=== PATIENT | female | born 1955 | race Two or more races ===

== ENCOUNTER 2016-07-19 05:23 | Day surgery (SDC) | payer OTHER ==
[2016-07-19] MEDS ORDERED: SECONDARY IV SET 1 EA INFUS.SET MC ONE (05:58)
[2016-07-19] MEDS ORDERED: CEFAZOLIN SODIUM/DEXTROSE,ISO 50 ML IV ONE (05:58)
[2016-07-19] MEDS ORDERED: IV SET PRIMARY 1 EA INFUS.SET MC ONE (05:58)
[2016-07-19] MEDS ORDERED: NEEDLELESS EST SET LARGE BORE 1 EA INFUS.SET MC ONE (05:58)
[2016-07-19] MEDS ORDERED: IV LR 1000 ML 1,000 ML ONE (05:58)
[2016-07-19] MEDS ORDERED: LIDOCAINE HCL/PF 1% 30 ML SDV ONE (06:55)
[2016-07-19] MEDS ORDERED: EPINEPHRINE (1:1000) MDV 30 MG/30ML VIAL ONE (08:11)
[2016-07-19] MEDS ORDERED: MORPHINE SULFATE/PF 10 MG/10ML (1MG/ML) AMPUL ONE (08:27)
== END 2016-07-19 09:40 | disposition home or self-care (01) ==
LOC: DS 05:23
PROVIDERS: ATTEND Student in an Organized Health Care Education/Training Program
DX: S83.242A Other tear of medial meniscus, current injury, left knee, initial encounter (principal); M65.88 Other synovitis and tenosynovitis, other site; M67.52 Plica syndrome, left knee; M94.262 Chondromalacia, left knee; X58.XXXA Exposure to other specified factors, initial encounter; Y93.89 Activity, other specified; Y92.89 Other specified places as the place of occurrence of the external cause; Y99.8 Other external cause status; I11.9 Hypertensive heart disease without heart failure; I25.2 Old myocardial infarction; I25.10 Atherosclerotic heart disease of native coronary artery without angina pectoris; M17.9 Osteoarthritis of knee, unspecified; I70.0 Atherosclerosis of aorta; F41.9 Anxiety disorder, unspecified; Z90.710 Acquired absence of both cervix and uterus; Z80.9 Family history of malignant neoplasm, unspecified
CPT/HCPCS: 29881; A4217; A6253 ×2; J0171; J0690; J2274; J3490; J7120; 88304-TC; 88305-TC; 88311-TC

== ENCOUNTER 2017-03-01 05:20 | Inpatient (IN) | payer OTHER ==
[~2017-03-01] VITALS: Ht 152.4 cm; Wt 81.6 kg
[2017-03-01] VITALS (13 sets, daily range): BP systolic 116–137; BP diastolic 64–79
[2017-03-01] MEDS ORDERED: MIDAZOLAM HCL 2 MG/2ML VIAL ONE (06:48)
[2017-03-01] MEDS ORDERED: MORPHINE SULFATE/PF 10 MG/10ML (1MG/ML) AMPUL ONE (06:48)
[2017-03-01] MEDS ORDERED: KETOROLAC TROMETHAMINE INJ 30 MG/ML VIAL ONE (06:50)
[2017-03-01] MEDS ORDERED: BUPIVACAINE MPF 0.5% W/EPI INJ 30 ML VIAL ONE (06:51)
[2017-03-01] MEDS ORDERED: BACITRACIN 50000 UNITS/VIAL ONE (06:51)
[2017-03-01] MEDS ORDERED: TRANEXAMIC ACID 3,000 MG in SODIUM CHLORIDE IRRIG SOLUTION 70 ML IR ONE (07:00)
[2017-03-01] MEDS ORDERED: HYDROMORPHONE 1 MG/1 ML DISP.SYRIN IV PRN (09:00)
[2017-03-01] MEDS ORDERED: TYLENOL 650 MG TABLET PO PRN (09:00)
[2017-03-01] MEDS ORDERED: DULCOLAX 10 MG/SUPP.RECT RC PRN (09:00)
[2017-03-01] MEDS ORDERED: COLACE 100 MG CAPSULE PO PRN (09:00)
[2017-03-01] MEDS ORDERED: HYDROCODONE/APAP 5/325MG 1 EACH TABLET PO PRN ×2 (09:00→19:30)
[2017-03-01] MEDS ORDERED: SENOKOT 8.6 MG TABLET PO PRN (09:00)
--- NOTE | 2017-03-01 09:00 | NUR ---
ELECTRICIAN FRONT: ADMISSION NOTE PT TRANSFERRED FROM OR S/P LEFT TOTAL KNEE REPLACEMENT DONE BY MD HERNANDEZ ON 03/01/17. ECONOMIZER IN PLACE WITH ICE PACK. A/OX4. NO DISTRESS NOTED. NO PAIN NOTED DUE TO ANAESTHESIA. ON 2 L NC SATING AT 99%. VS STABLE. BP 114/65, PULSE 62, RR18, TEMP 97.5. MILIAN CATH IN PLACE, DRAINING AND PATENT. D/C PER MD ORDER ON 2 DAYS POST OP 03/03/17. ON REGULAR DIET. LR 100 ML/HR RUNNING ON LEFT HAND. SITE CLEAR AND PATENT. NO REDNESS NOTED. DRESSING CHANGE ON LEFT KNEE DUE ON Monday03/03/17. DRESSING INTACT. RESTING COMFORTABLY IN BED. CALL LIGHT WITHIN REACH.
[2017-03-01] MEDS ORDERED: ONDANSETRON HCL/PF 4 MG/2 ML VIAL IVP PRN ×2 (10:30→15:00)
[2017-03-01] MEDS ORDERED: PRAV40TA3 PO (10:54)
[2017-03-01] MEDS ORDERED: HYDR25TA4 PO (10:54)
[2017-03-01] MEDS ORDERED: ISOS60TA4 PO (10:54)
[2017-03-01] MEDS ORDERED: OXYC-164 PO (10:54)
[2017-03-01] MEDS ORDERED: METO25TA6 PO (10:54)
[2017-03-01] MEDS ORDERED: ASPI-991 PO (10:54)
[2017-03-01] MEDS ORDERED: MORPHINE SULFATE INJ 4 MG/ML DISP.SYRIN IV PRN (11:00)
[2017-03-01] MEDS ORDERED: NALOXONE HCL 0.4 MG/ML AMPUL IV PRN (11:00)
[2017-03-01] MEDS ORDERED: diphenhydrAMINE HCL 50 MG/ML VIAL IM PRN (11:00)
[2017-03-01] MEDS: IV LR 1000 ML 1,000 ML IV PRN ×2 (12:07→22:50)
[2017-03-01] MEDS ORDERED: HYDROCODONE/APAP 5/325MG 1 EACH TABLET ONE (13:33)
[2017-03-01] MEDS: HYDROCODONE/APAP 5/325MG 1 EACH TABLET PO PRN (13:39)
[2017-03-01] MEDS: ANCEF 1 G in IV D5W 50 ML IV SCH ×2 (15:26→22:50)
[2017-03-01] MEDS: ATORVASTATIN 10 MG TABLET PO SCH (18:11)
--- NOTE | 2017-03-01 18:36 | NUR ---
BRUSH CLEANER: CLOSING NOTE PT A/OX 4. S/P L TOTAL KNEE REPLACEMENT. DRESSING INTACT, EMOBILIZER ON, AND ICE PACK. 1ST DRESSING CHANGE ON MONDAY03/03/17. ON 2 L NC SATING AT 100%. NO DISTRESS NOTED. PAIN CONTROLLED WITH PAIN MANAGEMENT. TOOK ALL MEDICATIONS ON TIME. PT HAD ONE EPISODE OF VOMITING. ADMINISTERED ZOFRAN ORDERED. ENCOURAGED PT TO EAT CRACKERS AND ICE CHIPS. WAS ABLE TO SLOWLY TOLERATE INTAKE. PER MD ORDER TO D/C TELE AFTER 24 HOURS OF SURGERY. D/C MILIAN CATH 2 DAYS POST OP 03/03/17. MILIAN CATH IN PLACE AND DRAINING. OUTPUT WAS 450ML. IV RUNNING LR AT 100ML/HR ON L HAND. SITE CLEAR AND PATENT. LABS IN AM. RESTING COMFORTABLY IN BED. CALL LIGHT WITHIN REACH.
[2017-03-01] MEDS ORDERED: HYDROMORPHONE INJ 2 MG/ML DISP.SYRIN IV PRN (19:30)
--- NOTE | 2017-03-01 19:40 | NUR ---
CONCRETE TILE MACHINE OPERATOR INITIAL NOTES PT IS AWAKE AND ALERT WITH AT BEDSIDE. NO SIGNS OF SOB OR DISTRESS, BREATHING EVENLY AND UNLABORED ON 2L NC. TELE MONITOR SHOWING SR 83. PT WALKER WAS DELIVERED TO BEDSIDE. LEG STABILIZER IS INTACT WITH ICE BAG ON KNEE, PT IS ABLE TO FEEL TOES ON AFFECTED LEG. BED IS IN LOW AND LOCKED POSITION, CALL LIGHT WITHIN REACH. WILL CONTINUE TO MONITOR
[2017-03-01] MEDS: METOPROLOL TARTRATE 25 MG TABLET PO SCH (20:52)
[2017-03-01] MEDS ORDERED: AMBIEN 5 MG TABLET PO PRN (22:00)
[2017-03-02] VITALS: BP 130/79
[2017-03-02] MEDS: oxyCODONE/APAP (5/325 MG) 1 UDTAB TABLET PO PRN ×2 (02:22→09:40)
[2017-03-02 04:00] VITALS: BP 133/86
[2017-03-02 06:26] LABS: BASOPHILS % (AUTO) 0.5 % (0.0-2.0); EOSINOPHILS % (AUTO) 0.2 % (0.0-6.0); HEMATOCRIT 36 % (33-45); HEMOGLOBIN 11.8 g/dL (11.5-14.8); LYMPHOCYTES # (AUTO) 1.1 /CMM (0.8-4.8); LYMPHOCYTES % (AUTO) 13.8 % (20.0-44.0); MEAN CORPUSCULAR HEMOGLOBIN 28 PG (26.0-33.0); MEAN CORPUSCULAR HGB CONC 33 g/dl (31.0-36.0); MEAN CORPUSCULAR VOLUME 86 fL (82-100); MONOCYTES # (AUTO) 0.4 /CMM (0.1-1.30); MONOCYTES % (AUTO) 5.7 % (2.0-12.0); NEUTROPHILS # (AUTO) 6.3 /CMM (1.8-8.9); NEUTROPHILS % (AUTO) 79.8 % (43.0-81.0); PLATELET COUNT (AUTO) 265 /CMM (150-450); RDW COEFFICIENT OF VARIATION 13.8 (11.5-15.0); RED BLOOD CELL COUNT(AUTO) 4.16 MIL/uL (4.0-5.2); WHITE BLOOD COUNT (AUTO) 7.9 K/uL (4.3-11.0)
--- NOTE | 2017-03-02 06:41 | NUR ---
POURER OFF CLOSING NOTES PT IS IN BED SLEEPING, EASILY AROUSED. NO SIGNS OF SOB OR DISTRESS. TELE MONITOR SHOWING SR 74. DENIES PAIN AT THIS TIME. WILL ENDORSE TO DAY SHIFT.
[2017-03-02 06:54] LABS: CALCIUM, SERUM 8.5 mg/dL (8.5-10.1); CREATININE 0.8 mg/dL (0.6-1.3); POTASSIUM 4.1 mmol/L (3.5-5.1)
--- NOTE | 2017-03-02 07:51 | NUR ---
MS RN NOTES PT IS ALERT AND AWAKE IN BED RESTING. DENIES PAIN. MILIAN CATHETER INTACT AND PATENT. IV LEFT HAND 20G RUNNING LR AT 100MLS/HR. CALL LIGHT WITHIN REACH. AT BEDSIDE. WILL CONTINUE TO MONITOR.
[2017-03-02 08:00] VITALS: BP 137/80
[2017-03-02] MEDS: ASPIRIN EC 325 MG TABLET.DR PO SCH (08:57)
[2017-03-02] MEDS: HYDROCHLOROTHIAZIDE 25 MG TABLET PO SCH (08:58)
[2017-03-02] MEDS: ISOSORBIDE MONONITRATE (30MG) 30 MG TAB.SR.24H PO SCH (08:58)
[2017-03-02] MEDS: METOPROLOL TARTRATE 25 MG TABLET PO SCH ×2 (08:59→21:26)
[2017-03-02] MEDS ORDERED: HYDROMORPHONE INJ 2 MG/ML DISP.SYRIN IV PRN (09:00)
[2017-03-02] MEDS ORDERED: ASPIRIN EC 81 MG TABLET.DR PO SCH (09:00)
[2017-03-02] MEDS: IV LR 1000 ML 1,000 ML IV PRN ×2 (12:01→23:18)
[2017-03-02] MEDS: HYDROCODONE/APAP 5/325MG 1 EACH TABLET PO PRN ×2 (16:07→23:07)
[2017-03-02 16:28] VITALS: BP 128/72
[2017-03-02] MEDS: ATORVASTATIN 10 MG TABLET PO SCH (17:58)
--- NOTE | 2017-03-02 18:53 | NUR ---
PT IS STABLE AND RESTING IN BED. IS AT THE BEDSIDE. CONTINUATION OF PAIN MANAGEMENT AND PHYSICAL THERAPY. BED IS LOWERED AND LOCKED. BEDSIDE RAILS ARE UP X2. WILL ENDORSE CARE TO TABLEAU ADMINISTRATOR NURSE FOR JOHNATHON.
--- NOTE | 2017-03-02 19:30 | NUR ---
RN NOTES: RECEIVED AWAKE ON BED,A/OX4 UPON ENDORSEMENT PATIENT HAS NO PAIN OR DISCOMFORT, PRESENT AT BED SIDE,NO SOB ON 02 AT 3L/MIN VIA NC,MILIAN CATH IN SITE,DRAINING INTO 50 CC OF YELLOWISH COLORED URINE,IV SITE LEFT HAND G#20 INTACT IVF OF LR AT 100CC/HR ON GOING, BED LOW AND LOCKED, CALL LIGHT WITHIN EASY REACH, KEPT ON CLOSE VISUAL CHECK.
[2017-03-02 20:00] VITALS: BP 147/75
--- NOTE | 2017-03-02 23:32 | NUR ---
RN NOTES: -PATIENT REPOSITIONED,AFTER THAT SHE COMPLAINED OF PAIN 12/12,NON PHARMACOLOGIC INTERVENTION RENDERED, BACK RUBBING, NORCO GIVEN AT 2307,BP-122/73 NM-83 RR-20. -IVF FINISHED, REPLACE NEW BAG OF LR AT 100CC/HR STARTED AT 2117.
--- NOTE | 2017-03-03 00:10 | NUR ---
RN NOTES: AFTER PAIN MEDICATION WAS GIVEN,PATIENT WAS ABLE TO REST AND SLEEP,MILIAN CATH DRAINING WELL,CALL LIGHT WITHIN EASY REACH, MONITORED ON CLOSE WATCH, CALLS AND NEEDS ATTENDED.
--- NOTE | 2017-03-03 06:38 | NUR ---
RN NOTES: ASLEEP, NO PAIN AND DISCOMFORT AT THIS TIME, ENDORSED FOR CONTINUITY OF CARE.
--- NOTE | 2017-03-03 07:44 | NUR ---
MS RN OPENING NOTE PATIENT IS ALERT AND ORIENTED x4. NO PAIN AT THIS TIME. NO SOB OR DISTRESS NOTED. CALL LIGHT WITHIN REACH. SAFETY MEASURES IMPLEMENTED. ABLE TO COMMUNICATE NEEDS. S/P LEFT TOTAL KNEE ARTHOPLASTY 03/01/17. MILIAN TO BE REMOVED TODAY. DRESSING CHANGE TO BE DONE BY ORTHO. IV INTACT AND PATENT, FLUIDS RUNNING AT THIS TIME. NO COMPLICATIONS, TOLERATING WELL. CPM ON AT THIS TIME. WILL CONTINUE TO MONITOR PATIENT
[2017-03-03 07:58] LABS: BASOPHILS % (AUTO) 0.4 % (0.0-2.0); EOSINOPHILS # (AUTO) 0.1 /CMM (0.0-0.7); EOSINOPHILS % (AUTO) 1.2 % (0.0-6.0); HEMATOCRIT 33 % (33-45); HEMOGLOBIN 11.1 g/dL (11.5-14.8); LYMPHOCYTES # (AUTO) 1.6 /CMM (0.8-4.8); LYMPHOCYTES % (AUTO) 21.4 % (20.0-44.0); MEAN CORPUSCULAR HEMOGLOBIN 29 PG (26.0-33.0); MEAN CORPUSCULAR HGB CONC 33 g/dl (31.0-36.0); MEAN CORPUSCULAR VOLUME 86 fL (82-100); MONOCYTES # (AUTO) 0.6 /CMM (0.1-1.30); MONOCYTES % (AUTO) 7.5 % (2.0-12.0); NEUTROPHILS # (AUTO) 5.3 /CMM (1.8-8.9); NEUTROPHILS % (AUTO) 69.5 % (43.0-81.0); PLATELET COUNT (AUTO) 212 /CMM (150-450); RDW COEFFICIENT OF VARIATION 13.4 (11.5-15.0); RED BLOOD CELL COUNT(AUTO) 3.89 MIL/uL (4.0-5.2); WHITE BLOOD COUNT (AUTO) 7.7 K/uL (4.3-11.0)
[2017-03-03 08:00] VITALS: BP 152/77
[2017-03-03 08:15] LABS: CALCIUM, SERUM 8.5 mg/dL (8.5-10.1); CREATININE 0.5 mg/dL (0.6-1.3); POTASSIUM 3.4 mmol/L (3.5-5.1)
[2017-03-03] MEDS: ASPIRIN EC 325 MG TABLET.DR PO SCH (08:36)
[2017-03-03] MEDS: METOPROLOL TARTRATE 25 MG TABLET PO SCH (08:36)
[2017-03-03] MEDS: ISOSORBIDE MONONITRATE (30MG) 30 MG TAB.SR.24H PO SCH (08:36)
[2017-03-03] MEDS: HYDROCHLOROTHIAZIDE 25 MG TABLET PO SCH (08:36)
[2017-03-03] MEDS: HYDROCODONE/APAP 5/325MG 1 EACH TABLET PO PRN (08:38)
[2017-03-03] MEDS: IV LR 1000 ML 1,000 ML IV PRN (09:41)
[2017-03-03] MEDS ORDERED: POTASSIUM CHLORIDE 20 MEQ TAB.PRT.SR PO SCH (12:00)
[2017-03-03] MEDS ORDERED: POTASSIUM CHLORIDE 20 MEQ TAB.PRT.SR PO ONE (13:00)
[2017-03-03 16:00] VITALS: BP 130/81
[2017-03-03] MEDS: ATORVASTATIN 10 MG TABLET PO SCH (17:24)
--- NOTE | 2017-03-03 18:37 | NUR ---
MS RN CLOSING NOTE PATIENT IS ALERT AND ORIENTED x4. NO PAIN AT THIS TIME. NO SOB OR DISTRESS NOTED. CALL LIGHT WITHIN REACH AT ALL TIMES. SAFETY MEASURES IMPLEMENTED. ABLE TO COMMUNICATE NEEDS. ALL DUE MEDICATIONS GIVEN ORDERED. ALL NURSING CARE NEEDS ATTENDED TO. MILIAN CATHETER REMOVED THIS MORNING, VOIDING WELL. IV INTACT AND PATENT NO REDNESS OR SWELLING NOTED. WILL BE DISCHARGED HOME WITH HOME HEALTH AFTER SURGICAL DRESSING IS CHANGED BY ORTHO. WILL ENDORSE TO TITLE CHECKER NURSE FOR JOHNATHON
--- NOTE | 2017-03-03 19:40 | NUR ---
PT DISCHARGED HOME,REMOVED IV LINE,KNEE DRESSING WAS CHANGED BY MD , KNEE IMMOBILIZER IN PLACE. TRANSPORTED BY WHEELCHAIR, WITH DME FWW. D/CD INTRUCTION GIVEN AND VERBALIZED UNDERSTANDING ,HOMEHEALTH ALREADY ARRANGED TO SEE PT IN AM.
== END 2017-03-03 19:40 | disposition home health service (06) | DRG 470 ==
LOC: DS 05:20 → MED 08:55 → TELE 22:23 → MED 03-02 08:46
PROVIDERS: ADMIT Specialist; ATTEND Internal Medicine
PROC: 0SRD0J9 Replacement of Left Knee Joint with Synthetic Substitute, Cemented, Open Approach (ICD-10-PCS; principal; 2017-03-01 07:00)
DX: M17.12 Unilateral primary osteoarthritis, left knee (principal); I10 Essential (primary) hypertension; E78.5 Hyperlipidemia, unspecified; E66.9 Obesity, unspecified; Z68.35 Body mass index [BMI] 35.0-35.9, adult
CPT/HCPCS: 36415; 80048-TC; 85025-TC; 86850-TC; 88305-TC; 88311-TC; 97110-TC; 97116-TC; 97530-TC; 97760-TC; A4217; A6402; C1713; J0690; J1170; J1885; J2250; J2274; J2405; J3490; J7060; J7120; L1830; Z7610

== ENCOUNTER 2021-12-13 00:37 | Inpatient (IN) | payer MEDICARE, OTHER ==
[~2021-12-13] VITALS: Ht 152.4 cm; Wt 83.0 kg
[~2021-12-13 00:37] MED LIST: ASPI-1420 PO; HYDR25TA4 PO; ISOS60TA72 PO; METO25TA6 PO; OXYC1TAB12 PO; PRAV40TA3 PO
--- NOTE | 2021-12-13 00:40 | NUR ---
AJITH 38 FROM HOME FOR C/O MID-STERNAL CP RADIATING TO L SHOULDER 1 SPRAY OF NITRO AND 324 OF ASA GIVEN SPEECH THERAPIST. PT A/OX4. RESP EVEN AND NON LABORED ON R/A; TOLERATING WELL. CONNECTED PT TO POX AND MONITOR. IV L HAND #20G ESTABLISHED SPEECH THERAPIST. SAFETY MEASURES IN PLACE.
--- NOTE | 2021-12-13 00:54 | NUR ---
EMT AT PT'S BEDSIDE FOR EKG
--- NOTE | 2021-12-13 00:59 | NUR ---
PT PROVIDED WITH WARM BLANKET FOR COMFORT.
--- NOTE | 2021-12-13 00:59 | NUR ---
RUBBER WORKER AT PT'S BEDSIDE
--- NOTE | 2021-12-13 01:24 | NUR ---
MARKING MACHINE TENDER AT PT'S BEDSIDE
[2021-12-13 01:29] LABS: BASOPHILS % (AUTO) 0.5 % (0.0-2.0); EOSINOPHILS % (AUTO) 1.7 % (0.0-6.0); HEMATOCRIT 41 % (33-45); HEMOGLOBIN 13.4 g/dL (11.5-14.8); LYMPHOCYTES # (AUTO) 1.9 K/uL (0.8-4.8); LYMPHOCYTES % (AUTO) 32.1 % (20.0-44.0); MEAN CORPUSCULAR HGB CONC 33 g/dl (31.0-36.0); MEAN CORPUSCULAR VOLUME 86 fL (82-100); MONOCYTES # (AUTO) 0.4 K/uL (0.1-1.30); MONOCYTES % (AUTO) 6.6 % (2.0-12.0); NEUTROPHILS # (AUTO) 3.5 K/uL (1.8-8.9); NEUTROPHILS % (AUTO) 59.1 % (43.0-81.0); PLATELET COUNT (AUTO) 268 K/uL (150-450); RED BLOOD CELL COUNT(AUTO) 4.79 MIL/uL (4.0-5.2)
[2021-12-13 01:37] LABS: CALCIUM, SERUM 9.3 mg/dL (8.5-10.1); CARBON DIOXIDE 28 mmol/L (21-32); CHLORIDE 103 mmol/L (98-107); CREATININE 0.8 mg/dL (0.6-1.3); GLUCOSE 114 mg/dL (74-106); POTASSIUM 3.8 mmol/L (3.5-5.1); SODIUM SERUM 138 mmol/L (136-145); UREA NITROGEN, BLOOD 16 mg/dL (7-18)
--- NOTE | 2021-12-13 01:58 | NUR ---
CALLED STAT RAD TO F/U WITH REPORT & IN RADIOLOGISTS QUEUE, ABOUT 13 PATIENTS AHEAD BEFORE REPORT CAN BE READ
[2021-12-13] MEDS ORDERED: NITROGLYCERIN 0.4 MG/TAB BOTTLE ONE (02:09)
[2021-12-13] MEDS ORDERED: NITROGLYCERIN PACKET 1 GM PACKET ONE (02:09)
[2021-12-13] MEDS ORDERED: NITROGLYCERIN PACKET 1 GM PACKET TOP ONE (02:30)
[2021-12-13] MEDS ORDERED: NITROGLYCERIN 0.4 MG/TAB BOTTLE SL ONE (02:30)
--- NOTE | 2021-12-13 03:20 | NUR ---
COVID ANTIGEN SWAB COLLECTED AND SENT TO LAB
[2021-12-13] MEDS ORDERED: Z GUARD REMEDY 4 OZ OINT TP PRN (06:00)
[2021-12-13] MEDS ORDERED: ISOSORBIDE MONONITRATE (30MG) 30 MG TAB.SR.24H PO ONE ×2 (06:00→06:19)
[2021-12-13] MEDS ORDERED: ONDANSETRON HCL/PF 4 MG/2 ML VIAL IVP PRN (06:00)
[2021-12-13] MEDS ORDERED: MORPHINE SULFATE INJ 2 MG/ML DISP.SYRIN IV PRN (06:00)
[2021-12-13 06:10] LABS: CHOLESTEROL 132 mg/dL (<200); HDL CHOLESTEROL 53 mg/dL (40-60); LDL 61 mg/dL (0-99); TRIGLYCERIDES 82 mg/dL (30-150)
--- NOTE | 2021-12-13 06:22 | NUR ---
PT AMBULATORY TO RESTROOM WITH STEADY GAIT; ADLS DONE. VSS. PT DENIES PAIN AT THIS TIME.
[2021-12-13] MEDS ORDERED: ACETAMINOPHEN 325 MG TABLET ONE (06:32)
[2021-12-13] MEDS ORDERED: PANTOPRAZOLE 40 MG TABLET.DR PO ONE (06:32)
[2021-12-13] MEDS: PANTOPRAZOLE 40 MG TABLET.DR PO SCH (06:35)
[2021-12-13] MEDS: ACETAMINOPHEN 325 MG TABLET PO PRN ×2 (06:35→12:49)
--- NOTE | 2021-12-13 06:36 | NUR ---
PRN PAIN MEDS: PT C/O 08/12 HEADACHE. ADMINISTERED TYLENOL ORDERED. WILL REASSESS PT FOR H/A IN 30 MINUTES
[2021-12-13] MEDS ORDERED: RIVA10TA PO (08:50)
[2021-12-13] MEDS ORDERED: LOSA50TA39 PO (08:50)
[2021-12-13] MEDS ORDERED: METO-357 PO (08:50)
[2021-12-13] MEDS ORDERED: ASPIRIN EC 81 MG TABLET.DR PO SCH (09:00)
[2021-12-13] MEDS: ASPIRIN EC 81 MG TABLET.DR PO SCH (09:00)
[2021-12-13] MEDS ORDERED: METOPROLOL TARTRATE 25 MG TABLET ONE (09:27)
[2021-12-13] MEDS ORDERED: HYDROCHLOROTHIAZIDE 25 MG TABLET ONE (09:27)
--- NOTE | 2021-12-13 09:31 | NUR ---
Food tray provided to patient.
[2021-12-13] MEDS: HYDROCHLOROTHIAZIDE 25 MG TABLET PO SCH (09:50)
[2021-12-13] MEDS: METOPROLOL TARTRATE 25 MG TABLET PO SCH ×2 (09:50→21:12)
--- NOTE | 2021-12-13 10:19 | NUR ---
report given to Raine COLBERT to continue care.
--- NOTE | 2021-12-13 10:56 | NUR ---
wheeled patient via gurney accompanied by emt and rn in no distress. RN assigned at bedside to assume care.
--- NOTE | 2021-12-13 11:55 | NUR ---
RN CLOSING NOTES PATIENT IN BED, AWAKE, A/O X4, VERBALLY RESPONSIVE. NO SIGNS OF ACUTE DISTRESS NOTED. REMAINS STABLE ON ROOM AIR.BREATHING EVEN AND UNLABORED. DENIES ANY CHEST PAIN. IV ACCESS ON LEFT AC #18G AND LEFT HAND #20G, INTACT AND PATENT, SALINE LOCKED. ON TELE MONITOR SHOWING SR/SB, HR @59. SAFETY MEASURE IN PLACE. BED IN LOWEST AND LOCKED POSITION. SIDE RAILS UP X2, CALL LIGHT PLACED WITHIN EASY REACH. WILL ENDORSE TO NEXT SHIFT FOR JOHNATHON.
[2021-12-13 12:00] VITALS: BP 143/77
--- NOTE | 2021-12-13 12:00 | NUR ---
RN ADMITTING NOTES ADMITTED THIS 65 Y/O FEMALE PATIENT FROM ER @1100, TRANSPORTED VIA GURNEY WITH 2 ER STAFF. AT BEDSIDE. WITH ADMITTING DIAGNOSIS OF CHEST PAIN. PATIENT IS ALERT AND ORIENTED X4, VERBALLY RESPONSIVE. NO SIGNS OF ACUTE DISTRESS NOTED. STABLE ON ROOM AIR, NO SOB NOTED. BREATHING EVEN AND UNLABORED. LUNGS CLEAR TO AUSCULTATION, ABDOMEN SOFT, NON-TENDER. PLACED PATIENT ON MACHINE COIL ASSEMBLER, CURRENTLY SHOWING SINUS RHYTHM, HR @ 65. NOTED WITH LEFT HAND IV ACCESS, #18G, INTACT AND PATENT SALINE LOCKED. SKIN GENERALLY INTACT, NO SKIN ISSUES NOTED. ORIENTED PATIENT TO STAFF AND ROOM. ROUTINE ADMISSION CARE PROVIDED. SAFETY MEASURE IN PLACE. BED IN LOWEST AND LOCKED POSITION, SIDE RAILS UP X2, CALL LIGHT PLACED WITHIN EASY REACH. WILL CONTINUE TO MONITOR PATIENT.
[2021-12-13] MEDS: METOPROLOL TARTRATE INJ 5 MG/5 ML AMPUL IVP PRN ×4 (14:25→14:40)
[2021-12-13] MEDS ORDERED: METOPROLOL TARTRATE INJ 5 MG/5 ML AMPUL ONE (14:28)
[2021-12-13] MEDS ORDERED: IOHEXOL-350 100 ML VIAL IV ONE (14:28)
[2021-12-13] MEDS ORDERED: CT SWABBABLE VALVE TRANS SET 1 EA INFUS.SET MC ONE (14:29)
[2021-12-13] MEDS ORDERED: IV NS 0.9% 500 ML IV ONE (14:29)
[2021-12-13] MEDS ORDERED: NITROGLYCERIN 0.4 MG/TAB BOTTLE SL PRN (14:30)
--- NOTE | 2021-12-13 14:30 | NUR ---
RN NOTES PATIENT PICKED UP FOR CT ANGIOGRAM.
--- NOTE | 2021-12-13 15:30 | NUR ---
RN NOTES BACK FROM CT ANGIOGRAM HEART.
[2021-12-13 16:00] VITALS: BP 109/58
[2021-12-13] MEDS ORDERED: RIVAROXABAN 10 MG TABLET PO SCH ×2 (17:00→18:00)
--- NOTE | 2021-12-13 19:15 | NUR ---
SOFTBALL CORE MOLDER OPENING NOTES: RECEIVED PATIENT IN BED,AWAKE, A/O X4. NO S/S OF DISTRESS NOTED. NO COMPLAIN OF PAIN. CALL LIGHT WITHIN REACH. BED IN LOWEST AND LOCKED POSITION. ON TELE MONITOR WITH SINUS 63.
[2021-12-13 20:00] VITALS: BP 126/63
[2021-12-13] MEDS ORDERED: ATORVASTATIN 10 MG TABLET PO SCH (22:00)
[2021-12-14 01:15] VITALS: BP 131/67
[2021-12-14 04:00] VITALS: BP 135/75
--- NOTE | 2021-12-14 07:30 | NUR ---
MARKETING COMMUNITY LIAISON OPENING NOTES: RECEIVED PT AWAKE IN BED. A/O X 4, ABLE TO VERABLIZE NEEDS. ON RA TOLERATING WELL, NO S/S OF SOB OR ACUTE DISTRESS AT THE MOMENT. TELE MONITOR READING SR, HR= 73, IV ACCESS L HAND#20 AND L A/C #18 SL, PATENT. SAFETY MEASURES IN PLACE: HOB ELEVATED, BED LOCKED AT LOWEST POSITION, SIDE RAILS UP X2. CALL LIGHT AND TABLE WITHIN REACH, WILL CONT TO MONITOR.
[2021-12-14 08:00] VITALS: BP 142/78
[2021-12-14 08:41] LABS: BASOPHILS % (AUTO) 0.3 % (0.0-2.0); EOSINOPHILS % (AUTO) 1.3 % (0.0-6.0); HEMATOCRIT 39 % (33-45); HEMOGLOBIN 12.7 g/dL (11.5-14.8); LYMPHOCYTES # (AUTO) 1.5 K/uL (0.8-4.8); LYMPHOCYTES % (AUTO) 24.9 % (20.0-44.0); MEAN CORPUSCULAR HGB CONC 32 g/dl (31.0-36.0); MEAN CORPUSCULAR VOLUME 87 fL (82-100); MONOCYTES # (AUTO) 0.5 K/uL (0.1-1.30); MONOCYTES % (AUTO) 7.6 % (2.0-12.0); NEUTROPHILS % (AUTO) 65.9 % (43.0-81.0); PLATELET COUNT (AUTO) 260 K/uL (150-450); WHITE BLOOD COUNT (AUTO) 6.1 K/uL (4.3-11.0)
[2021-12-14] MEDS: METOPROLOL TARTRATE INJ 5 MG/5 ML AMPUL IVP PRN (08:43)
[2021-12-14] MEDS: ASPIRIN EC 81 MG TABLET.DR PO SCH (08:44)
[2021-12-14] MEDS: PANTOPRAZOLE 40 MG TABLET.DR PO SCH (08:44)
[2021-12-14] MEDS: HYDROCHLOROTHIAZIDE 25 MG TABLET PO SCH (08:44)
[2021-12-14 08:58] LABS: CALCIUM, SERUM 8.9 mg/dL (8.5-10.1); CREATININE 0.7 mg/dL (0.6-1.3); MAGNESIUM 1.9 mg/dL (1.8-2.4); POTASSIUM 3.7 mmol/L (3.5-5.1)
[2021-12-14] MEDS ORDERED: METOPROLOL SUCCINATE 50 MG TAB.SR.24H PO SCH (09:00)
[2021-12-14] MEDS ORDERED: LOSARTAN POTASSIUM 50 MG TABLET PO SCH (09:00)
[2021-12-14 12:00] VITALS: BP 148/87
[2021-12-14 16:00] VITALS: BP 149/89
--- NOTE | 2021-12-14 17:45 | NUR ---
DIRECTOR BUSINESS DEVELOPMENT CLOSING NOTES: PT DISCHARGED TO HOME WITH SPOUSE. VS STABLE, WNL. IV ACCESS ON L HAND AND L AC REMOVED, TELE-MONITOR BOX DISCONNECTED. PT TEACHING DONE AT BEDSIDE WITH FAMILY PRESENT, DC DOCUMENTS SIGNED AND HANDED TO PT, PT VERBALIZED UNDERSTANDING TO TEACHING. STAFF ESCORTED PT TO LOBBY VIA WHEELCHAIR.
== END 2021-12-14 17:45 | disposition home or self-care (01) | DRG 303 ==
LOC: ER 00:38 → TRANSITION 06:03 → TELE 10:02
PROVIDERS: ADMIT Nurse Practitioner Acute Care
DX: I25.10 Atherosclerotic heart disease of native coronary artery without angina pectoris (principal); E78.5 Hyperlipidemia, unspecified; I10 Essential (primary) hypertension; I48.0 Paroxysmal atrial fibrillation; Z79.01 Long term (current) use of anticoagulants; E11.9 Type 2 diabetes mellitus without complications; E66.9 Obesity, unspecified; Z90.710 Acquired absence of both cervix and uterus; M19.90 Unspecified osteoarthritis, unspecified site; Z90.49 Acquired absence of other specified parts of digestive tract; Z68.35 Body mass index [BMI] 35.0-35.9, adult; I27.20 Pulmonary hypertension, unspecified; I07.1 Rheumatic tricuspid insufficiency; G47.33 Obstructive sleep apnea (adult) (pediatric); Z20.822 Contact with and (suspected) exposure to COVID-19; Z96.652 Presence of left artificial knee joint
CPT/HCPCS: 36415; 71045-TC; 75574; 80048-TC; 80061-TC; 83735-TC; 84100-TC; 84484-TC; 85025-TC; 87081-TC; 93307-TC; 93970-TC; C9803; G0378; J3490; J7040; Q9967

== ENCOUNTER 2022-07-28 13:10 | Inpatient (IN) | payer MEDICARE, OTHER ==
[~2022-07-28] VITALS: Ht 152.4 cm; Wt 78.0 kg
[~2022-07-28 13:10] MED LIST changes: -ASPI-1420 PO; -ISOS60TA72 PO; +LOSA50TA39 PO; +METO-357 PO; -METO25TA6 PO; -OXYC1TAB12 PO; +RIVA10TA PO
[2022-07-28 13:57] LABS: BASOPHILS % (AUTO) 0.5 % (0.0-2.0); EOSINOPHILS % (AUTO) 0.8 % (0.0-6.0); HEMATOCRIT 53 % (33-45); HEMOGLOBIN 16.8 g/dL (11.5-14.8); LYMPHOCYTES # (AUTO) 2.1 K/uL (0.8-4.8); LYMPHOCYTES % (AUTO) 26.8 % (20.0-44.0); MEAN CORPUSCULAR HGB CONC 32 g/dl (31.0-36.0); MEAN CORPUSCULAR VOLUME 88 fL (82-100); MONOCYTES # (AUTO) 0.5 K/uL (0.1-1.30); MONOCYTES % (AUTO) 6.9 % (2.0-12.0); NEUTROPHILS # (AUTO) 5.2 K/uL (1.8-8.9); PLATELET COUNT (AUTO) 389 K/uL (150-450); RED BLOOD CELL COUNT(AUTO) 6.01 MIL/uL (4.0-5.2)
[2022-07-28] MEDS ORDERED: AMLO5TAB4 PO (14:00)
[2022-07-28] MEDS ORDERED: CALC-883 PO (14:00)
[2022-07-28 14:09] LABS: CALCIUM, SERUM 10.2 mg/dL (8.5-10.1); CARBON DIOXIDE 29 mmol/L (21-32); CHLORIDE 100 mmol/L (98-107); CREATININE 0.9 mg/dL (0.6-1.3); GLUCOSE 124 mg/dL (74-106); POTASSIUM 3.4 mmol/L (3.5-5.1); SODIUM SERUM 138 mmol/L (136-145); UREA NITROGEN, BLOOD 14 mg/dL (7-18)
--- NOTE | 2022-07-28 14:17 | NUR ---
MOVE SHEET SUBMITTED.
[2022-07-28] MEDS ORDERED: METOPROLOL TARTRATE INJ 5 MG/5 ML AMPUL IVP ONE ×2 (15:00→20:00)
[2022-07-28] MEDS ORDERED: ASPIRIN 81 MG TAB.CHEW PO ONE (15:00)
--- NOTE | 2022-07-28 15:05 | NUR ---
DR. MILLS SPEAKING WITH DR. DESAI AUTH ADMISSION VERBAL.
--- NOTE | 2022-07-28 15:17 | NUR ---
GOT BED 103 ADMITTING INFORMED.
[2022-07-28] MEDS ORDERED: METOPROLOL TARTRATE INJ 5 MG/5 ML AMPUL ONE (15:18)
[2022-07-28] MEDS ORDERED: ASPIRIN EC 81 MG TABLET.DR PO ONE (15:18)
[2022-07-28] MEDS ORDERED: ZOLPIDEM TARTRATE 5 MG TABLET PO PRN (15:30)
[2022-07-28] MEDS ORDERED: ONDANSETRON HCL/PF 4 MG/2 ML VIAL IVP PRN (15:30)
[2022-07-28] MEDS ORDERED: ACETAMINOPHEN 325 MG TABLET PO PRN (15:30)
[2022-07-28] MEDS ORDERED: MAGNESIUM HYDROXIDE 30 ML UDC PO PRN (15:30)
[2022-07-28] MEDS ORDERED: MAG HYDROX/AL HYDROX/SIMETH 30 ML UDC PO PRN (15:30)
[2022-07-28] MEDS ORDERED: Z GUARD REMEDY 4 OZ OINT TP PRN (15:30)
--- NOTE | 2022-07-28 15:36 | NUR ---
REPORT GIVEN TO KATJA COLBERT FOR JOHNATHON
--- NOTE | 2022-07-28 15:50 | NUR ---
EMPLOYMENT INSTRUCTIONAL ASSOCIATE NOTE ADMIT 66 YEAR OLD FEMALE, AT ROOM 106 ON TELE MONITORING ALERT ORIENTED X4 VERBALLY RESPONSIVE ON ROOM AIR O2:97% ADMITTING DIAGNOSIS IS A-FIB.AMBULATORY CONTIENT BOWEL/BLADDER.IV SITE IS ON RIGHT AC INTACT PATENT,SAFETY MEASURE IMPLEMENT BED IN LOW POSITION AND LOCKED,CALL LIGHT WITHIN REACH,HEAD OF THE BED ELEVATED CONTINUE TO MONITOR.
[2022-07-28 16:00] VITALS: BP 109/78
--- NOTE | 2022-07-28 18:24 | NUR ---
RN NOTE PATIENT REMAINS ALERT ORIENTED X4 VERBALLY RESPONSIVE,A-FIB, NOTIFIED DAMIR BENITEZ MULTIMEDIA ENGINEER HR 108-140,WILL ENDORSE NEXT COMING SHIFT FOR CONTINUATION OF CARE.
--- NOTE | 2022-07-28 18:30 | NUR ---
RN NOTE BUTCH BENITEZ LIFE INSURANCE SALESPERSON ORDERED METOPROLOL 5MG IVP ONE TIME NOTED AND WILL ENDORSE FOR NEXT COMING SHIFT.
--- NOTE | 2022-07-28 19:00 | NUR ---
RN NOTE RECEIVED PT IN BED, AWAKE, ALERT, ORIENTED X4, VERBALLY RESPONSIVE, MAINLY ENGLISH SPEAKING BUT ABLE TO COMMUNICATE IN [place], ABLE TO MAKE NEEDS KNOWN. DENIES PAIN/DISCOMFORT AT THIS TIME. PT ON ROOM AIR, WELL NIRALI. NO SOB/NO ACUTE RESP DISTRESS NOTED. PT ATTACHED TO [employer]. IV ACCESS RAC #20G ON SL, NO S/SX OF INFX/INFILTRATION, PATENT AND FLUSHING WELL. PT IS AMBULATORY. SAFETY PRECAUTIONS IMPLEMENTED AT ALL TIMES. CALL LIGHT WITHIN EASY REACH.
[2022-07-28 20:00] VITALS: BP 122/88
[2022-07-29] VITALS: BP 104/65
[2022-07-29 04:00] VITALS: BP 107/67
--- NOTE | 2022-07-29 06:14 | NUR ---
RN NOTE PT REMAINS IN STABLE CONDITION. NO SIGNIFICANT CHANGES NOTED THROUGHOUT THE SHIFT. REMAINS ON ROOM AIR, O2 SAT 98%, NO SOB, NO ACUTE RESP DISTRESS NOTED. BOOTH MANAGER READING A.FIB CONTROLLED. ALL DUE MEDICATIONS GIVEN ORDERED. ALL NEEDS ATTENDED. SAFETY FALL PRECAUTION OBSERVED AT ALL TIMES.
[2022-07-29 06:38] LABS: BASOPHILS % (AUTO) 0.3 % (0.0-2.0); EOSINOPHILS % (AUTO) 1.9 % (0.0-6.0); HEMATOCRIT 44 % (33-45); HEMOGLOBIN 14.2 g/dL (11.5-14.8); LYMPHOCYTES # (AUTO) 1.8 K/uL (0.8-4.8); LYMPHOCYTES % (AUTO) 27.4 % (20.0-44.0); MEAN CORPUSCULAR HGB CONC 32 g/dl (31.0-36.0); MEAN CORPUSCULAR VOLUME 88 fL (82-100); MONOCYTES # (AUTO) 0.6 K/uL (0.1-1.30); MONOCYTES % (AUTO) 9.2 % (2.0-12.0); NEUTROPHILS # (AUTO) 4.1 K/uL (1.8-8.9); NEUTROPHILS % (AUTO) 61.2 % (43.0-81.0); PLATELET COUNT (AUTO) 294 K/uL (150-450); RED BLOOD CELL COUNT(AUTO) 5.05 MIL/uL (4.0-5.2); WHITE BLOOD COUNT (AUTO) 6.7 K/uL (4.3-11.0)
--- NOTE | 2022-07-29 07:30 | NUR ---
SAUSAGE WRAPPER AM NOTE RECEIVED PATIENT IN BED RESTING ALERT ORIENTED X 4, ON ROOM AIR, O2 SAT 100%, NO SOB, AFIB HR 111, DENIES PAIN/DISCOMFORT. RAC G20 IV ACCESS, FLUSHES WELL, SITE CLEAR. CARDIAC DIET. AMBULATORY AD IGOR, BRP, SAFETY MEASURE IMPLEMENT BED IN LOW POSITION AND LOCKED, POC DISCUSSED, VERBALIZED UNDERSTANDING. WILL CONTINUE TO MONITOR.
[2022-07-29 07:47] LABS: CALCIUM, SERUM 9.3 mg/dL (8.5-10.1); CREATININE 0.8 mg/dL (0.6-1.3); MAGNESIUM 1.8 mg/dL (1.8-2.4); PHOSPHORUS 4.5 mg/dL (2.5-4.9); POTASSIUM 3.5 mmol/L (3.5-5.1)
[2022-07-29 08:00] VITALS: BP 117/76
[2022-07-29] MEDS: CALCIUM CARB 600MG /VIT D 1 EACH TABLET PO SCH (08:37)
[2022-07-29] MEDS: RIVAROXABAN 10 MG TABLET PO SCH (08:38)
[2022-07-29] MEDS: HYDROCHLOROTHIAZIDE 25 MG TABLET PO SCH (08:39)
[2022-07-29] MEDS: ATORVASTATIN 10 MG TABLET PO SCH (08:39)
[2022-07-29] MEDS: AMLODIPINE BESYLATE 5 MG TABLET PO SCH (08:39)
[2022-07-29] MEDS: LOSARTAN POTASSIUM 50 MG TABLET PO SCH (08:39)
[2022-07-29] MEDS ORDERED: METOPROLOL SUCCINATE 50 MG TAB.SR.24H PO SCH (09:00)
--- NOTE | 2022-07-29 09:30 | NUR ---
RN NOTES DUE MEDS GIVEN
[2022-07-29 12:00] VITALS: BP 100/76
[2022-07-29 16:00] VITALS: BP 113/79
--- NOTE | 2022-07-29 19:19 | NUR ---
BUILDING CONSTRUCTION INSPECTOR CLOSING NOTE PATIENT IN BED RESTING ALERT ORIENTED X 4, ON ROOM AIR, O2 SAT 100%, NO SOB, AFIB HR 111 - 122, DENIES PAIN/DISCOMFORT. RAC G20 IV ACCESS, FLUSHES WELL, SITE CLEAR. CARDIAC DIET. AMBULATORY AD IGOR, BRP, SAFETY MEASURE IMPLEMENT BED IN LOW POSITION AND LOCKED, POC DISCUSSED, VERBALIZED UNDERSTANDING. ALL NEEDS MET. WILL ENDORSE TO NEXT SHIFT FOR JOHNATHON.
--- NOTE | 2022-07-29 19:20 | NUR ---
EYELET MACHINE OPERATOR OPENING NOTE RECEIVED PATIENT IN BED, A/O X 4, ON ROOM AIR, O2 SAT 100%, NO SOB/DISTRESS NOTED, CONTROLLED AFIB WITH HR 97, DENIES PAIN/DISCOMFORT AT THIS TIME. IV ACCESS AT RAC G20 S/L, INTACT AND PATENT. AMBULATORY AD IGOR, BRP. SAFETY MEASURES IN PLACE: BED LOCKED AND IN LOWEST POSITION, CALL LIGHT WITHIN REACH, SIDE RAILS UP X3.
[2022-07-29 20:00] VITALS: BP 105/75
[2022-07-30] VITALS: BP 118/72
[2022-07-30 04:00] VITALS: BP 95/68
--- NOTE | 2022-07-30 06:29 | NUR ---
COCONUT COOKER CLOSING NOTE PATIENT IN BED, ASLEEP, BUT AROUSABLE, ON ROOM AIR, O2 SAT 96%, NO SOB/DISTRESS NOTED, CONTROLLED AFIB WITH HR 71, SKIN IS WARM AND DRY. IV ACCESS AT RAC G20 S/L, INTACT AND PATENT. AMBULATORY AD IGOR, BRP. VSS. ALL DUE MEDS GIVEN AND NEEDS ATTENDED. SAFETY MEASURES MAINTAINED: BED LOCKED AND IN LOWEST POSITION, CALL LIGHT WITHIN REACH, SIDE RAILS UP X3. WILL ENDORSE TO ONCOMING NURSE FOR JOHNATHON.
--- NOTE | 2022-07-30 06:55 | NUR ---
RN OPENING NOTE RECEIVED PATIENT IN BED, A/O X 4, ON ROOM AIR, O2 SAT 100%, NO SOB/DISTRESS NOTED,ON EXTERNAL METAL BONDER CONTROLLED AFIB, DENIES PAIN/DISCOMFORT AT THIS TIME. IV ACCESS AT RAC G20 S/L, INTACT AND PATENT. AMBULATORY WITH ASSISTANCE, BRP. SAFETY MEASURES IN PLACE: BED LOCKED AND IN LOWEST POSITION, CALL LIGHT WITHIN REACH.
[2022-07-30 08:00] VITALS: BP 113/63
[2022-07-30] MEDS ORDERED: METOPROLOL SUCCINATE 50 MG TAB.SR.24H PO SCH (09:00)
[2022-07-30] MEDS: LOSARTAN POTASSIUM 50 MG TABLET PO SCH (09:38)
[2022-07-30] MEDS: AMLODIPINE BESYLATE 5 MG TABLET PO SCH (09:39)
[2022-07-30] MEDS: RIVAROXABAN 10 MG TABLET PO SCH (09:45)
[2022-07-30] MEDS: CALCIUM CARB 600MG /VIT D 1 EACH TABLET PO SCH (09:46)
[2022-07-30] MEDS: HYDROCHLOROTHIAZIDE 25 MG TABLET PO SCH (09:46)
[2022-07-30] MEDS: ATORVASTATIN 10 MG TABLET PO SCH (09:46)
[2022-07-30 12:00] VITALS: BP 105/63
[2022-07-30] MEDS ORDERED: ATOR10TA PO (12:22)
[2022-07-30] MEDS ORDERED: HYDR25TA4 PO (12:22)
[2022-07-30] MEDS ORDERED: LOSA50TA39 PO (12:22)
[2022-07-30] MEDS ORDERED: ACET325T53 PO (12:22)
[2022-07-30] MEDS ORDERED: ZOLP5TAB8 PO (12:22)
[2022-07-30] MEDS ORDERED: Calcium Carb 600MG /Vit D PO (12:22)
[2022-07-30] MEDS ORDERED: AMLO-212 PO (12:22)
[2022-07-30] MEDS ORDERED: METO50TA7 PO (12:22)
[2022-07-30] MEDS ORDERED: RIVA10TA PO (12:22)
== END 2022-07-30 16:07 | disposition home or self-care (01) | DRG 309 ==
LOC: ER 13:23 → TELE1 15:25
PROVIDERS: ADMIT Nurse Practitioner Acute Care; ATTEND Nurse Practitioner Acute Care
DX: I48.20 Chronic atrial fibrillation, unspecified (principal); I31.39 Other pericardial effusion (noninflammatory); E83.52 Hypercalcemia; E87.6 Hypokalemia; E66.9 Obesity, unspecified; E78.5 Hyperlipidemia, unspecified; I10 Essential (primary) hypertension; I25.10 Atherosclerotic heart disease of native coronary artery without angina pectoris; I42.9 Cardiomyopathy, unspecified; Z68.33 Body mass index [BMI] 33.0-33.9, adult; M19.90 Unspecified osteoarthritis, unspecified site; Z79.01 Long term (current) use of anticoagulants; I25.2 Old myocardial infarction; Z96.652 Presence of left artificial knee joint; Z71.3 Dietary counseling and surveillance
CPT/HCPCS: 36415; 71045-TC; 73564-TC; 80048-TC; 83735-TC; 84100-TC; 84484-TC; 85025-TC; 87081-TC; 93307-TC; 97116-TC; 97530-TC; C9803; G0378; J3490

== ENCOUNTER 2024-03-05 04:47 | Emergency (ER) | payer MEDICARE ==
[~2024-03-05] VITALS: Ht 152.4 cm; Wt 71.7 kg
[~2024-03-05 04:47] MED LIST changes: +ACET325T53 PO; +AMLO-212 PO; +AMLO5TAB4 PO; +ATOR10TA PO; +CALC-883 PO; +Calcium Carb 600MG /Vit D PO; +METO50TA7 PO
[2024-03-05 06:01] LABS: BASOPHILS % (AUTO) 0.4 % (0.0-2.0); EOSINOPHILS # (AUTO) 0.1 K/uL (0.0-0.7); EOSINOPHILS % (AUTO) 1.2 % (0.0-6.0); HEMATOCRIT 40 % (33-45); HEMOGLOBIN 12.9 g/dL (11.5-14.8); LYMPHOCYTES # (AUTO) 1.1 K/uL (0.8-4.8); LYMPHOCYTES % (AUTO) 25.4 % (20.0-44.0); MEAN CORPUSCULAR HEMOGLOBIN 29 PG (26.0-33.0); MEAN CORPUSCULAR HGB CONC 33 g/dl (31.0-36.0); MEAN CORPUSCULAR VOLUME 89 fL (82-100); MONOCYTES # (AUTO) 0.4 K/uL (0.1-1.30); MONOCYTES % (AUTO) 10.1 % (2.0-12.0); NEUTROPHILS # (AUTO) 2.8 K/uL (1.8-8.9); NEUTROPHILS % (AUTO) 62.9 % (43.0-81.0); PLATELET COUNT (AUTO) 177 K/uL (150-450); RED BLOOD CELL COUNT(AUTO) 4.41 MIL/uL (4.0-5.2); WHITE BLOOD COUNT (AUTO) 4.4 K/uL (4.3-11.0)
[2024-03-05 06:12] LABS: INR 1.62 (0.91-1.10); PARTIAL THROMBOPLASTIN TIME 37.4 SEC (24.3-34.3); PROTHROMBIN TIME 16.6 SECS (9.2-11.1)
[2024-03-05] MEDS ORDERED: DOCU-141 PO (06:35)
[2024-03-05] MEDS ORDERED: HYDR28.340 RC (06:35)
[2024-03-05 06:44] VITALS: BP 124/81; TEMP 98; O2SAT 99
[2024-03-05 06:48] LABS: ALBUMIN 3.8 g/dL (3.4-5.0); BILIRUBIN,DIRECT 0.5 mg/dL (0.0-0.2); BILIRUBIN,TOTAL 1.1 mg/dL (0.2-1.0); CALCIUM, SERUM 9.7 mg/dL (8.5-10.1); POTASSIUM 3.7 mmol/L (3.5-5.1); TOTAL PROTEIN, SERUM 8.6 g/dL (6.4-8.2)
== END 2024-03-05 06:45 | disposition home or self-care (01) ==
LOC: ER 04:52
DX: K64.8 Other hemorrhoids (principal); I25.10 Atherosclerotic heart disease of native coronary artery without angina pectoris; I10 Essential (primary) hypertension; Z98.890 Other specified postprocedural states
CPT/HCPCS: 36415; 80048-TC; 80076-TC; 85025-TC; 85730-TC

== ENCOUNTER 2024-12-23 17:28 | Emergency (ER) | payer MEDICARE ==
[~2024-12-23] VITALS: Ht 167.6 cm; Wt 68.5 kg
[~2024-12-23 17:28] MED LIST changes: +DOCU-141 PO; +HYDR28.340 RC
[2024-12-23 17:56] LABS: PLATELET COUNT (AUTO) 396 K/uL (150-450); RED BLOOD CELL COUNT(AUTO) 4.10 MIL/uL (4.0-5.2); RED CELL DISTRIBUTION WIDTH 15.2 % (11.5-15.0); WHITE BLOOD COUNT (AUTO) 5.9 K/uL (4.3-11.0)
[2024-12-23] MEDS: ADENOSINE 6 MG/2 ML VIAL IVP ONE (17:59)
[2024-12-23 18:09] LABS: CALCIUM, SERUM 9.9 mg/dL (8.5-10.1); CREATININE 1.1 mg/dL (0.6-1.3); SODIUM SERUM 133.0 mmol/L (136-145); UREA NITROGEN, BLOOD 24.0 mg/dL (7-18)
[2024-12-23 18:14] LABS: INR 1.33 (0.91-1.10)
[2024-12-23] MEDS ORDERED: ADENOSINE 6 MG/2 ML VIAL ONE (18:20)
[2024-12-23] MEDS ORDERED: DILTIAZEM HCL 25 MG IV ONE (18:21)
[2024-12-23] MEDS: DILTIAZEM HCL 50 MG IV IV ONE (18:30)
[2024-12-23 20:06] VITALS: BP 110/66; TEMP 98.2; O2SAT 99
== END 2024-12-23 20:13 | disposition home or self-care (01) ==
LOC: ER 17:37
DX: I47.10 Supraventricular tachycardia, unspecified (principal); I48.91 Unspecified atrial fibrillation; R00.2 Palpitations; R07.9 Chest pain, unspecified; E78.5 Hyperlipidemia, unspecified; I11.0 Hypertensive heart disease with heart failure; I50.9 Heart failure, unspecified; Z79.01 Long term (current) use of anticoagulants; Z79.899 Other long term (current) drug therapy; Z95.2 Presence of prosthetic heart valve; Z87.39 Personal history of other diseases of the musculoskeletal system and connective tissue
CPT/HCPCS: 99285; 96374; 71045; 96375; 93005 ×3; 85025; 80048; 36415; 85730; J0153; J3490

== ENCOUNTER 2024-12-27 10:06 | Inpatient (IN) | payer MEDICARE ==
[~2024-12-27] VITALS: Ht 152.4 cm; Wt 67.1 kg
[2024-12-27] MEDS ORDERED: ADENOSINE 6 MG/2 ML VIAL ONE (10:25)
[2024-12-27 10:34] LABS: PLATELET COUNT (AUTO) 351 K/uL (150-450); RED BLOOD CELL COUNT(AUTO) 3.93 MIL/uL (4.0-5.2); RED CELL DISTRIBUTION WIDTH 15.6 % (11.5-15.0); WHITE BLOOD COUNT (AUTO) 5.1 K/uL (4.3-11.0)
[2024-12-27] MEDS ORDERED: DILTIAZEM HCL 25 MG IV ONE (10:38)
[2024-12-27 10:40] LABS: CALCIUM, SERUM 9.2 mg/dL (8.5-10.1); CREATININE 1.1 mg/dL (0.6-1.3); SODIUM SERUM 135 mmol/L (136-145); UREA NITROGEN, BLOOD 22 mg/dL (7-18)
[2024-12-27] MEDS: DILTIAZEM HCL 25 MG IV IVP ONE (10:42)
[2024-12-27] MEDS: IV NS 0.9% 500 ML IV ONE (10:45)
[2024-12-27 10:53] LABS: NT-PRO BNP 7090 pg/mL (0-125)
[2024-12-27] MEDS ORDERED: DILTIAZEM HCL IV 125 MG in IV NS 0.9% 100 ML IV PRN (11:00)
[2024-12-27] MEDS ORDERED: DILTIAZEM HCL IV 125 MG in IV D5W 100 ML IV ONE (11:00)
[2024-12-27] MEDS ORDERED: ACETAMINOPHEN 325 MG TABLET PO PRN ×2 (12:00)
[2024-12-27] MEDS ORDERED: Z GUARD REMEDY 4 OZ OINT TP PRN (12:00)
[2024-12-27] MEDS ORDERED: ONDANSETRON HCL/PF 4 MG/2 ML VIAL IVP PRN (12:00)
[2024-12-27 13:00] VITALS: BP 92/58; TEMP 97.5; O2SAT 100
[2024-12-27] MEDS: METOPROLOL SUCCINATE 50 MG TAB.SR.24H PO SCH (13:03)
[2024-12-27] MEDS: DOCUSATE SODIUM 100 MG CAPSULE PO SCH (16:12)
[2024-12-27] MEDS: MAG HYDROX/AL HYDROX/SIMETH 30 ML UDC PO PRN (16:12)
[2024-12-27 17:00] VITALS: BP 96/67; TEMP 97.5; O2SAT 100
[2024-12-27] MEDS: DIGOXIN INJ 0.5 MG/2 ML AMPUL IV ONE ×2 (19:18→23:29)
[2024-12-27 20:00] VITALS: BP 95/58; TEMP 97.9; O2SAT 98
[2024-12-28] VITALS (7 sets, daily range): BP systolic 94–115; BP diastolic 53–72; TEMP 97.7–98.8; O2SAT 97–99
[2024-12-28] MEDS: DIGOXIN INJ 0.5 MG/2 ML AMPUL IV ONE (05:26)
[2024-12-28 07:17] LABS: PLATELET COUNT (AUTO) 291 K/uL (150-450); RED BLOOD CELL COUNT(AUTO) 3.79 MIL/uL (4.0-5.2); RED CELL DISTRIBUTION WIDTH 15.3 % (11.5-15.0); WHITE BLOOD COUNT (AUTO) 4.2 K/uL (4.3-11.0)
[2024-12-28 07:44] LABS: CALCIUM, SERUM 8.9 mg/dL (8.5-10.1); CREATININE 0.7 mg/dL (0.6-1.3); PHOSPHORUS 3.4 mg/dL (2.5-4.9); SODIUM SERUM 137.0 mmol/L (136-145); UREA NITROGEN, BLOOD 17.0 mg/dL (7-18)
[2024-12-28] MEDS: RIVAROXABAN 10 MG TABLET PO SCH (08:15)
[2024-12-28] MEDS ORDERED: METOPROLOL SUCCINATE 50 MG TAB.SR.24H PO SCH (09:00)
[2024-12-28] MEDS: METOPROLOL TARTRATE 50 MG TABLET PO SCH (12:03)
[2024-12-28] MEDS: MAGNESIUM HYDROXIDE 30 ML UDC PO PRN (15:38)
[2024-12-29] VITALS: BP 105/61; TEMP 97.9; O2SAT 99
[2024-12-29 04:00] VITALS: BP 101/56; TEMP 97.5; O2SAT 99
[2024-12-29 06:50] LABS: PLATELET COUNT (AUTO) 321 K/uL (150-450); RED BLOOD CELL COUNT(AUTO) 3.80 MIL/uL (4.0-5.2); RED CELL DISTRIBUTION WIDTH 14.9 % (11.5-15.0); WHITE BLOOD COUNT (AUTO) 4.9 K/uL (4.3-11.0)
[2024-12-29 07:15] LABS: CALCIUM, SERUM 9.8 mg/dL (8.5-10.1); CREATININE 0.8 mg/dL (0.6-1.3); SODIUM SERUM 139.0 mmol/L (136-145); UREA NITROGEN, BLOOD 12.0 mg/dL (7-18)
[2024-12-29 08:00] VITALS: BP 108/57; TEMP 97.5; O2SAT 99
[2024-12-29] MEDS: RIVAROXABAN 10 MG TABLET PO SCH (08:30)
[2024-12-29] MEDS: MAGNESIUM HYDROXIDE 30 ML UDC PO PRN (08:37)
[2024-12-29] MEDS: NA PHOS,M-B/NA PHOS,DI-BA 1 EA ENEMA RC PRN (10:22)
[2024-12-29 12:00] VITALS: BP 121/68; TEMP 97.7; O2SAT 100
[2024-12-29 16:00] VITALS: BP 108/64; TEMP 98.2; O2SAT 99
[2024-12-29 20:00] VITALS: BP 105/59; TEMP 98; O2SAT 100
[2024-12-30] VITALS: BP 116/52; TEMP 98.1; O2SAT 100
[2024-12-30 04:00] VITALS: BP 102/51; TEMP 98.2; O2SAT 100
[2024-12-30 08:00] VITALS: BP 102/57; TEMP 98.1; O2SAT 97
== END 2024-12-30 11:57 | disposition home or self-care (01) | DRG 281 ==
LOC: ER 10:11 → TELE-TD 11:46 → TELE1 12-28 09:40
PROVIDERS: ADMIT Internal Medicine; ATTEND Internal Medicine
DX: I48.91 Unspecified atrial fibrillation (principal); I50.32 Chronic diastolic (congestive) heart failure; I21.A1 Myocardial infarction type 2; E78.5 Hyperlipidemia, unspecified; I25.10 Atherosclerotic heart disease of native coronary artery without angina pectoris; I25.2 Old myocardial infarction; Z95.2 Presence of prosthetic heart valve; Z79.01 Long term (current) use of anticoagulants; R79.89 Other specified abnormal findings of blood chemistry; I11.0 Hypertensive heart disease with heart failure; Z95.1 Presence of aortocoronary bypass graft
CPT/HCPCS: 36415; 71045-TC; 80048-TC; 83735-TC; 83880; 84100-TC; 84484-TC; 85025-TC; 97110-TC; 97116-TC; 97530-TC; 97535-TC; G0378; J0153; J1160; J3490; J7030; J7040; J7060

== ENCOUNTER 2025-01-04 21:24 | Emergency (ER) | payer MEDICARE, MEDICAID ==
[~2025-01-04] VITALS: Ht 152.4 cm; Wt 66.7 kg
[2025-01-04 22:37] LABS: WHITE BLOOD COUNT (AUTO) 4.7 K/uL (4.3-11.0)
[2025-01-04 22:44] LABS: CALCIUM, SERUM 9.4 mg/dL (8.5-10.1); CREATININE 1.0 mg/dL (0.6-1.3); SODIUM SERUM 136.0 mmol/L (136-145); UREA NITROGEN, BLOOD 16.0 mg/dL (7-18)
[2025-01-04 22:48] LABS: PLATELET COUNT (AUTO) 277 K/uL (150-450); RED BLOOD CELL COUNT(AUTO) 3.36 MIL/uL (4.0-5.2); RED CELL DISTRIBUTION WIDTH 14.8 % (11.5-15.0)
[2025-01-04 22:50] LABS: ASPARTATE AMINOTRANSFERASE 37.0 U/L (15-37); TOTAL PROTEIN, SERUM 7.0 g/dL (6.4-8.2)
[2025-01-04 22:58] LABS: INR 1.18 (0.91-1.10)
[2025-01-04 23:14] LABS: BASOPHILS % (MANUAL) 0 % (0.0-2.0); EOSINOPHILS % (MANUAL) 4 % (0-4); LYMPHOCYTES % (MANUAL) 32 % (16-48); MONOCYTES % (MANUAL) 13 % (0-11.0); NEUTROPHILS % (MANUAL) 51 (42-76); PLATELET ESTIMATE ADEQUATE
[2025-01-05 04:00] VITALS: BP 113/53; TEMP 98.2; O2SAT 97
== END 2025-01-05 04:30 | disposition left against medical advice (07) ==
LOC: ER 21:31 → MED 01-05 03:22 → UNDOADMIN 01-05 03:22
DX: K92.2 Gastrointestinal hemorrhage, unspecified (principal); Z95.1 Presence of aortocoronary bypass graft
CPT/HCPCS: 36415; 80053-TC; 85027-TC; 85610-TC; 85730-TC

== ENCOUNTER 2025-01-15 00:30 | Emergency (ER) | payer MEDICARE, MEDICAID ==
[~2025-01-15] VITALS: Ht 152.4 cm; Wt 66.7 kg
[2025-01-15 01:21] LABS: PLATELET COUNT (AUTO) 265 K/uL (150-450); RED BLOOD CELL COUNT(AUTO) 3.45 MIL/uL (4.0-5.2); RED CELL DISTRIBUTION WIDTH 14.9 % (11.5-15.0); WHITE BLOOD COUNT (AUTO) 7.2 K/uL (4.3-11.0)
[2025-01-15] MEDS ORDERED: ONDANSETRON HCL/PF 4 MG/2 ML VIAL ONE (01:25)
[2025-01-15] MEDS ORDERED: MORPHINE SULFATE INJ 4 MG/ML DISP.SYRIN ONE (01:26)
[2025-01-15] MEDS: MORPHINE SULFATE INJ 2 MG/ML DISP.SYRIN IV ONE (01:30)
[2025-01-15] MEDS: ONDANSETRON HCL/PF - ER 4 MG/2 ML VIAL IV ONE (01:31)
[2025-01-15 01:42] LABS: CALCIUM, SERUM 9.1 mg/dL (8.5-10.1); CREATININE 0.7 mg/dL (0.6-1.3); NT-PRO BNP 8394 pg/mL (0-125); SODIUM SERUM 138 mmol/L (136-145); UREA NITROGEN, BLOOD 10 mg/dL (7-18)
[2025-01-15 04:27] VITALS: BP 125/61; TEMP 98; O2SAT 95
== END 2025-01-15 04:28 | disposition home or self-care (01) ==
LOC: ER 00:42
DX: R07.89 Other chest pain (principal); I11.0 Hypertensive heart disease with heart failure; I50.9 Heart failure, unspecified; K21.9 Gastro-esophageal reflux disease without esophagitis; R06.02 Shortness of breath; Z79.01 Long term (current) use of anticoagulants; Z79.899 Other long term (current) drug therapy; Z91.148 Patient's other noncompliance with medication regimen for other reason; Z95.2 Presence of prosthetic heart valve
CPT/HCPCS: 99285; 96374; 71045; 96375; 93005; 85025; 80048; 36415; 84484 ×2; 83880; J2270; J2405 ×2

== ENCOUNTER 2025-02-04 23:07 | Emergency (ER) | payer MEDICARE, MEDICAID ==
[~2025-02-04] VITALS: Ht 152.4 cm; Wt 66.7 kg
[2025-02-05 00:16] LABS: PLATELET COUNT (AUTO) 183 K/uL (150-450); RED BLOOD CELL COUNT(AUTO) 3.76 MIL/uL (4.0-5.2); RED CELL DISTRIBUTION WIDTH 15.1 % (11.5-15.0); WHITE BLOOD COUNT (AUTO) 7.4 K/uL (4.3-11.0)
[2025-02-05 00:23] LABS: CALCIUM, SERUM 9.4 mg/dL (8.5-10.1); CREATININE 1.0 mg/dL (0.6-1.3); SODIUM SERUM 138.0 mmol/L (136-145); UREA NITROGEN, BLOOD 12.0 mg/dL (7-18)
[2025-02-05] MEDS ORDERED: POTASSIUM CHLORIDE 20 MEQ TAB.PRT.SR PO ONE (01:00)
[2025-02-05 02:06] VITALS: BP 120/77; TEMP 99.6; O2SAT 96
== END 2025-02-05 02:06 | disposition home or self-care (01) ==
LOC: ER 23:09
DX: R07.9 Chest pain, unspecified (principal); J06.9 Acute upper respiratory infection, unspecified; E87.6 Hypokalemia; Z79.01 Long term (current) use of anticoagulants; Z79.899 Other long term (current) drug therapy; Z20.822 Contact with and (suspected) exposure to COVID-19
CPT/HCPCS: 36415; 71045-TC; 80048-TC; 85025-TC

== ENCOUNTER 2025-04-30 08:37 | Emergency (ER) | payer MEDICAID, MEDICARE ==
[~2025-04-30] VITALS: Ht 152.4 cm; Wt 65.8 kg
[2025-04-30] MEDS ORDERED: ACETAMINOPHEN ES 500 MG TABLET ONE (09:05)
[2025-04-30] MEDS: ACETAMINOPHEN ES 500 MG TABLET PO ONE (09:07)
[2025-04-30 09:16] LABS: PLATELET COUNT (AUTO) 193 K/uL (150-450); RED BLOOD CELL COUNT(AUTO) 3.97 MIL/uL (4.0-5.2); RED CELL DISTRIBUTION WIDTH 15.5 % (11.5-15.0); WHITE BLOOD COUNT (AUTO) 7.2 K/uL (4.3-11.0)
[2025-04-30 09:24] LABS: CALCIUM, SERUM 9.5 mg/dL (8.5-10.1); CREATININE 0.7 mg/dL (0.6-1.3); SODIUM SERUM 138 mmol/L (136-145); UREA NITROGEN, BLOOD 15 mg/dL (7-18)
[2025-04-30 11:51] VITALS: BP 126/76; TEMP 99.2; O2SAT 100
== END 2025-04-30 11:51 | disposition home or self-care (01) ==
LOC: ER 08:39
DX: J02.8 Acute pharyngitis due to other specified organisms (principal); J06.9 Acute upper respiratory infection, unspecified; B97.89 Other viral agents as the cause of diseases classified elsewhere; E78.5 Hyperlipidemia, unspecified; Z79.01 Long term (current) use of anticoagulants; Z79.899 Other long term (current) drug therapy; Z20.822 Contact with and (suspected) exposure to COVID-19
CPT/HCPCS: 36415; 71045-TC; 80048-TC; 84484-TC; 85025-TC